=== PATIENT | male | born 1950 | race Caucasian/White ===

== ENCOUNTER 2017-05-10 14:26 | Emergency (ER) | payer MEDICARE, OTHER ==
--- NOTE | 2017-05-10 14:57 | ED ---
General Adult HPI - General Chief complaint: Urogenital Stated complaint: UTI Time Seen by Provider: 05/10/17 14:47 Source: patient, RN notes reviewed, old records reviewed Mode of arrival: ambulatory Limitations: no limitations - History of Present Illness Initial comments: This is a 67 year evaluation. Patient presented to our emergency room with abdominal pain and inability to fully urinate feels that he has a full bladder since yesterday. Patient has anterior superior cervical abdominal pain. Feels that he has inability to completely relieve himself when he urinates. No bowel movements since yesterday as well. Pain feels like fullness and incomplete urination. Patient denies history of prostate issues - Related Data Home Medications Medication Instructions Recorded Confirmed Atorvastatin [Lipitor] 20 mg PO HS 01/14/16 05/10/17 Lisinopril [Prinivil] 20 mg PO DAILY 01/14/16 05/10/17 Glimepiride [Amaryl] 4 mg PO DAILY 05/10/17 05/10/17 metFORMIN HCL ER [Glucophage Xr] 500 mg PO BID-W/MEALS 05/10/17 05/10/17 Allergies Allergy/AdvReac Type Severity Reaction Status Date / Time No Known Allergies Allergy Verified 05/10/17 14:33 Review of Systems ROS Statement: Those systems with pertinent positive or pertinent negative responses have been documented in the HPI. ROS Other: All systems not noted in ROS Statement are negative. Past Medical History Past Medical History: Diabetes Mellitus, Hyperlipidemia, Hypertension History of Any Multi-Drug Resistant Organisms: None Reported Past Surgical History: No Surgical Hx Reported Past Psychological History: No Psychological Hx Reported Smoking Status: Never smoker Past Alcohol Use History: Occasional Past Drug Use History: None Reported General Exam Limitations: no limitations General appearance: alert, in no apparent distress Head exam: Present: atraumatic, normocephalic, normal inspection Eye exam: Present: normal appearance, PERRL, EOMI. Absent: scleral icterus, conjunctival injection, periorbital swelling ENT exam: Present: normal exam, mucous membranes moist Neck exam: Present: normal inspection. Absent: tenderness, meningismus, lymphadenopathy Respiratory exam: Present: normal lung sounds bilaterally. Absent: respiratory distress, wheezes, rales, rhonchi, stridor Cardiovascular Exam: Present: regular rate, normal rhythm, normal heart sounds. Absent: systolic murmur, diastolic murmur, rubs, gallop, clicks GI/Abdominal exam: Present: soft, normal bowel sounds. Absent: distended, tenderness, guarding, rebound, rigid Extremities exam: Present: normal inspection, full ROM, normal capillary refill. Absent: tenderness, pedal edema, joint swelling, calf tenderness Back exam: Present: normal inspection Neurological exam: Present: alert, oriented X3, CN II-XII intact Psychiatric exam: Present: normal affect, normal mood Skin exam: Present: warm, dry, intact, normal color. Absent: rash Course Vital Signs 05/10/17 05/10/17 14:31 16:46 Temperature 98.5 F 97.7 F Pulse Rate 89 92 Respiratory 20 24 Rate Blood Pressure 160/92 134/80 O2 Sat by Pulse 98 97 Oximetry - Reevaluation(s) Reevaluation #1: 05/10/17 17:07 Patient had Ryan placed with no output Patient had bowel movement after x-ray Medical Decision Making - Medical Decision Making 6 been mailed to the ER ER for evaluation of inability urinary inability have a stool, patient is able to do both here in the emergency room, urine is negative for infection, patient will follow-up with primary care for further evaluation, encouraged increased fluid intake - Lab Data Lab Results 05/10/17 05/10/17 Range/Units 15:00 16:09 POC Glucose (mg/dL) 214 H (75-99) mg/dL POC Glu [employer] Worker ID Nakita Bueno Urine Color Light Yellow Urine Appearance Clear (Clear) Urine pH 5.0 (5.0-8.0) Ur Specific [place] 1.021 (1.001-1.035) Urine Protein Negative (Negative) Urine Glucose (UA) 4+ H (Negative) Urine Ketones 2+ H (Negative) Urine Blood Small H (Negative) Urine Nitrite Negative (Negative) Urine Bilirubin Negative (Negative) Urine Urobilinogen <2.0 (<2.0) mg/dL Ur Leukocyte Esterase Trace H (Negative) Urine RBC 1 (0-5) /hpf Urine WBC 7 H (0-5) /hpf Urine Mucus Rare H (None) /hpf - Radiology Data Radiology results: report reviewed (X-ray abdominal surgery chest is negative), image reviewed Disposition Clinical Impression: Abdominal pain, Dysuria, Urge incontinence Disposition: HOME SELF-CARE Condition: Good Instructions: Benign Prostatic Hypertrophy (ED) Referrals: Craig Rice MD [Primary Care Provider] - 1-2 days
[2017-05-10 15:46] LABS: Appearance,Urine Clear (Clear); Bilirubin,Urine Negative (Negative); Glucose,Urine (UA) 4+ (Negative); Leukocyte Esterase,Urine Trace (Negative); Mucus,Urine Rare /hpf; Nitrite,Urine Negative (Negative); Particle Count 911; Protein,Urine Negative (Negative); RBC,Urine 1 /hpf (0-5); Specific Gravity,Urine 1.021 (1.001-1.035); UA Billing (MACRO vs. MICRO) MICRO; Urobilinogen,Urine <2.0 mg/dL (<2.0); WBC,Urine 7 /hpf (0-5)
[2017-05-10 15:55] LABS: Ketones,Urine 2+ (Negative)
[2017-05-10 16:11] LABS: Glucose,Whole Blood 214 mg/dL (75-99)
--- NOTE | 2017-05-10 16:45 | XR ---
EXAMINATION TYPE: XR abdomen acute w cxr , 4 VIEWS DATE OF EXAM ORDERED: 05/10/2017 HISTORY: Pain. COMPARISON: None. FINDINGS: The heart is mildly prominent. The lungs appear clear. The left CP angle is obscured and I could not exclude a small effusion. Within the abdomen, the abdominal gas pattern is within normal limits. There is no evidence of obstru ction or free air. There is a calcification immediately adjacent to the transverse process on the lef t at L3. This may be in the left ureter. There is mild spondylosis deformans in the lumbar spine IMPRESSION: 1. SUSPECTED LEFT RENAL CALCULUS. 2. CARDIOMEGALY. 3. I CANNOT EXCLUDE A SMALL LEFT EFFUSION. 4. DEGENERATIVE CHANGES WITHIN THE SPINE.
[2017-05-10 16:46] VITALS: BP 134/80; PULSE 92; RESP 24; TEMP 97.7
== END 2017-05-10 17:34 | disposition home or self-care (01) ==
LOC: EC 14:26
DX: N39.41 Urge incontinence (principal); R30.0 Dysuria; E78.5 Hyperlipidemia, unspecified; I10 Essential (primary) hypertension; E11.9 Type 2 diabetes mellitus without complications; Z79.84 Long term (current) use of oral hypoglycemic drugs; Z79.899 Other long term (current) drug therapy
CPT/HCPCS: 36415; 51702; 74022; 81001; 87086; 99284